=== PATIENT | male | born 1975 | race Caucasian/White ===

== ENCOUNTER → 2019-11-02 | Day surgery (SDC) | payer BC ==
[~2019-11-02] MED LIST: ADAL40PE SQ; ALBUTEROL SULFATE 2.5 MG/3 ML NEBU. NEB PRN; ATROPINE 0.5 MG/5 ML DISP.SYRIN. IV PRN; IBUP400T18 PO; IV RINGERS SOLUTION,LACTATED 1,000 ML IV SCH; ONDANSETRON PF 4 MG/2 ML VIAL. IV PRN; PHENOL ORAL SPRAY 177ML BOTTLE. MM PRN; PROPOFOL 20 ML IV ONE; diphenhydrAMINE 50 MG/ML VIAL IV PRN
[2019-11-02 08:02] VITALS: BP 98/69
--- NOTE | 2019-11-03 18:38 | PATHOLOGY ---
[facility] Accession Number: [id number] . 01 Material submitted: . ileum - TERMINAL ILEUM BIOPSY . 01 Clinical history: . Crohn's. . 02 Diagnosis: Terminal ileum biopsies: - Mild active chronic ileitis without granulomas or specific features, and segments of granulation tissue showing acute and chronic inflammation consistent with ulcer. ([facility] 11/03/2019) [facility] 11/03/2019 1646 Local . 02 Comment: Sections of the terminal ileum biopsy reveal segments of small intestine mucosa showing congestion and mild active chronic inflammation. There are no granulomas or specific features. There are two segments of granulation tissue showing acute and chronic inflammation consistent with ulcer. The findings are non-specific but could be compatible with Crohn's disease. Correlate clinically. ([facility] 11/03/2019) . 02 Electronically signed: . Javier Maier MD, Pathologist NPI- [id number] . 01 Gross description: . Received in formalin labeled "Lex Danielson". The container is not labeled with the specimen site. Per the requisition, the specimen site is "terminal ileum BX". The specimen is a 0.5 x 0.4 x 0.1 cm aggregate of khan-brown soft tissue fragments. The specimen is submitted in A1. ([facility] [place] 11/02/2019) [facility] 11/02/2019 1715 Local . 02 Pathologist provided ICD-10: K63.3, K52.9 . 02 CPT . 860269 Specimen Comment: A courtesy copy of this report has been sent to [phone] Specimen Comment: [id number] Specimen Comment: Report sent to / DR SALAZAR Performed at: 01 [facility] [id number] [facility] [place] [address], [place], [place] [id number] MD Abhijeet Pierce MD Phone: [phone] Performed at: 02 [facility] [address] [place], [place] [id number] MD Javier Maier MD Phone: [phone]
== END | disposition home or self-care (01) ==
LOC: SURG 06:58
PROVIDERS: ATTEND Emergency Medicine
DX: K50.00 Crohn's disease of small intestine without complications (principal); K52.89 Other specified noninfective gastroenteritis and colitis; F32.9 Major depressive disorder, single episode, unspecified; Z98.0 Intestinal bypass and anastomosis status; Z87.39 Personal history of other diseases of the musculoskeletal system and connective tissue; Z98.890 Other specified postprocedural states; Z72.89 Other problems related to lifestyle
CPT/HCPCS: 45380; 88305; J2704; J7120